=== PATIENT | male | born 1955 | race Caucasian/White ===

== ENCOUNTER 2016-07-09 15:57 | Inpatient (IN) | payer BC ==
--- NOTE | ~2016-07-09 | IDS ---
Interim Discharge Summary [facility] [address] [place]. [address] NAME: MIGUELITO SCHOFIELD : 57 STATUS : ADM IN PAT#: [id number] AGE: 60 ADM/REG DATE : 07/09/16 MR#: [id number] REPORT SERV DATE: 07/18/16 DICTATED BY: ABILIO FRANCIS DATE: 07/18/16 REPORT STATUS : Draft TRANSCRIBED BY: MODL DATE: 07/18/16 ADMISSION DATE: 07/09/2016 DISCHARGE DATE: DATE OF INTERIM SUMMARY: 07/17/2016 INTERIM DIAGNOSES: 1. Severe anasarca, present on arrival. 2. Venous thromboembolism, present on arrival. 3. Bladder cancer history, follows with Dr. Alec Joseph at [facility]. 4. Anemia . 5. Acute kidney injury, chronic kidney disease. 6. LFT elevations. 7. Smoking history. CONSULTATIONS: Renal. PRIMARY ONCOLOGIST: Dr. Alec Joseph. ADDITIONAL CONSULTATIONS: Oncology. HOSPITAL COURSE: Please see H and P for complete details. HISTORY OF PRESENT ILLNESS: Briefly, Mr. Schofield is a 60-year-old male with past medical history of bladder cancer and blood clots, was on Eliquis, additionally CKD and anemia, who presents after having same-level fall. He has been going back and forth to see his , who has been having multiple hospital stays and has been in current transition at [facility], but has been having an inpatient stay at [facility]. The patient had a fall at his car and had mild head abrasion. Initial workup, no trauma or head injury, but the patient was noted to be significantly anasarca. Had been doing very poor job caring for self, as the patient was fully occupied taking care of . The patient was placed on IV diuresis with further guidance from Renal. The patient has had decrease in approximately 49 pounds to date and has been changed over to p.o. diuresis and metolazone, currently monitoring clinically and with radiograph of chest x-ray, has had significant improvement. However, the patient has had chronic debility and will likely need rehab and is plan for [facility] after discharge. The patient subsequently was also blood clot positive. Repeat imaging showed new blood clot on left side of body, upper extremities, and IJ. Was on Eliquis at this time. The patient had been put on warfarin, but had subsequent drop in his H and H, which was also stopped. The patient was monitored and the patient required blood transfusion. The patient had minimal exposure to heparin. The patient's stool studies were negative. No signs of bleeding were clearly identified. Case was discussed with Dr. 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 Due to the patient's anasarca, this is, I believe to be, failed Eliquis due to absorption potential and therapeutic goal. The patient, once H and H had stabled, was trialed on Arixtra and currently is monitoring H and H at this time. The patient has been tolerating Arixtra well. For bladder cancer, the patient is to continue to follow Dr. Alec Joseph at discharge and likely required transition of Interim Discharge Summary [address] [address] NAME: MIGUELITO SCHOFIELD : 57 STATUS : ADM IN PAT#: [id number] AGE: 60 ADM/REG DATE : 07/09/16 MR#: [id number] REPORT SERV DATE: 07/18/16 DICTATED BY: ABILIO FRANCIS DATE: 07/18/16 REPORT STATUS : Draft TRANSCRIBED BY: MODRadhames DATE: 07/18/16 medications as current oncology treatment may be a component of anasarca. The patient's JAVID, CKD is currently closely being monitored. The patient did have congestive hepatopathy, which is also improving. The patient had repeat CT of head due to occasional slurring of words during night and morning, although this could be from electrolyte abnormalities. Due to the patient's recent fall history, CT head was repeated and was still remaining negative. Barriers to discharge, monitoring H and H, monitoring ability to tolerate p.o. medications, and optimization of diuretics. The patient also continued on fluid restriction and will likely need [facility] rehab at discharge. DDN/MODL Abilio Francis MD / [id number] CC: MD DAGO Armijo
--- NOTE | ~2016-07-09 | CN ---
Consultation Report [facility] [address] [place]. [address] NAME: MIGUELITO SCHOFIELD : 57 STATUS : ADM IN PAT#: [id number] AGE: 60 ADM/REG DATE : 07/09/16 MR#: [id number] REPORT SERV DATE: 07/10/16 DICTATED BY: ELLY ROSE DATE: 07/10/16 REPORT STATUS : Draft TRANSCRIBED BY: MODL DATE: 07/10/16 NEPHROLOGY CONSULTATION DATE OF CONSULTATION: REASON FOR CONSULTATION: Acute kidney injury with anasarca and profuse edema. HISTORY OF PRESENT ILLNESS: This is a fairly pleasant 60-year-old male patient, who is actually in the spouse of one of our active hemodialysis patients, who is currently inpatient at [facility]. He apparently was visiting her yesterday evening and had a slip and "fall" striking his head in the parking lot here at [facility]. He was evaluated in the emergency department and found to have suffered no acute injuries related to his slip and fall. However, he has been experiencing of late of worsening diffuse anasarca with edema, which has been worsening over the last two to three weeks by his report. The patient is an active treatment for bladder cancer, receiving chemotherapy, and has received multiple treatments. He does mention during the HPI and review of that his Oncology providers have discussed modifying his treatment plan based of "toxicity." The patient is aware of his baseline creatinine score. He does state, however, that his diuretics have been manipulated of late due to changes in his kidney readings, the patient also has had difficulty worsening edema upper and lower extremities and in particularly in his groin area. The patient reports that on a regular treatment day that he often experiences nausea and vomiting post treatment; however, he is able to recover and sustain and continues on active treatment with regular follow-ups of CT. On evaluation here, initial indication of CT wound of the abdomen and pelvis without contrast did show of bilateral hydronephrosis. There was an attempt made to place a Barfield catheter. However, this was unable to be completed at bedside by Urology Services. The patient chronically on Eliquis, the medication was held should there be further urologic needs on presentation for Barfield catheter placement stating that the patient would likely require a suprapubic catheter. On further imaging, renal ultrasound did not indicate evidence of hydronephrosis as indicated on CT of the abdomen and pelvis without contrast. The patient is awake and alert. He is currently on a Bumex drip. He denies current chest pain. No nausea, vomiting, or diarrhea. He reports no significant rashes. No recent antibiotic exposure and complains of diffuse edema for approximately two to three weeks worsening over the last week or so. 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 PAST SURGICAL HISTORY: Left heart catheterization in 1998 with one-vessel disease with significant collateral blood flow, not requiring percutaneous intervention, history of nephrolithiasis, bladder surgery. Consultation Report [address] [place]. [address] NAME: MIGUELITO SCHOFIELD : 57 STATUS : ADM IN PAT#: [id number] AGE: 60 ADM/REG DATE : 07/09/16 MR#: [id number] REPORT SERV DATE: 07/10/16 DICTATED BY: ELLY ROSE DATE: 07/10/16 REPORT STATUS : Draft TRANSCRIBED BY: REJI DATE: 07/10/16 REVIEW OF SYSTEMS: Review of systems is completed. Please see HPI for pertinent details. SOCIAL HISTORY: No ETOH. No illicit drugs. No tobacco. FAMILY HISTORY: Noncontributory and not reviewed in this consultation and dictation. His is, however, an active dialysis patient. ACTIVE MEDICATIONS AND ALLERGIES: On entry are as follows: Tylenol 1000 mg daily p.r.n.; Zyloprim 100 mg p.o. daily; Eliquis 5 mg p.o. b.i.d.; Lasix 20 mg daily x7 days, after 7 days previous 40; Neurontin 600 mg p.o. t.i.d.; Apresoline 25 mg p.o. daily; morphine p.o.; MS Contin 15 mg p.o. q.h.s. p.r.n.; Zofran 4 mg p.o. q.6 hours p.r.n.; Roxicodone 10 mg p.o. q.6 hours p.r.n.; Compazine 10 mg p.o. q.6 hours p.r.n.; Aldactone 25 mg p.o. daily. PHYSICAL EXAMINATION: VITAL SIGNS: Blood pressure 142/78, temperature 98.2, respiratory rate at 20, heart rate 102 beats per minute and regular, and 99% on room air. GENERAL: He is a pleasant, awake, alert, and oriented x3 male patient, in no acute distress during evaluation. HEENT: Normocephalic and atraumatic. Normal ocular movements. No scleral icterus or conjunctival pallor is appreciated. NECK: Without thyromegaly. No JVD or mass. CHEST: Shows positive S1 and S2. No rubs or gallops. LUNGS: Clear auscultation with some diminished bases. Normal expansion and effort bilaterally. No appreciable wheezes or rhonchi. GASTROINTESTINAL: Shows a rounded obese abdomen with positive bowel sounds in all four quadrants. No appreciable mass or tenderness. GENITOURINARY: Deferred. EXTREMITIES: Show significant edema to 2 to 3+ bilaterally in upper and lower extremities extending from his lower extremities upward into his groin and testicular area. NEUROLOGIC: He appears to be grossly intact. Nonfocal. SKIN: Warm, dry, and intact to visualized surfaces. No rash, lesions, or ecchymosis. PSYCHIATRIC: He is of appropriate mood and affect. LABORATORY DATA: Pertinent laboratories and imaging to this evaluation: Portable chest x- ray shows clear lungs. Renal ultrasound shows no evidence of hydronephrosis, but does show mild ascites. Renal function panel: Sodium of 142, potassium 4.4, chloride 105, CO2 of 27, BUN 40, creatinine 1.91, reflected GFR at 38 mL/minute. Calcium 7.5, magnesium 1.7, phosphorus 3.0. Albumin 1.3, iron 109, ferritin 1140, folate 6.1, vitamin B12 at 430. CBC shows a white blood cell count of 5.4, RBC 2.84, hemoglobin 7.7, hematocrit 25.0, and platelets 305. Consultation Report [facility] [id number] [place]. [address] NAME: MIGUELITO SCHOFIELD : 57 STATUS : ADM IN [facility]#: [id number] AGE: 60 ADM/REG DATE : 07/09/16 MR#: [id number] REPORT SERV DATE: 07/10/16 DICTATED BY: ELLY ROSE DATE: 07/10/16 REPORT STATUS : Draft TRANSCRIBED BY: MODRadhames DATE: 07/10/16 Urinalysis identifies 100 mg/dL of protein, negative for blood or leukocyte esterase, minimal white blood cells per high-powered field, occasional bacteria with multiple red blood cells. CT of the abdomen and pelvis without contrast identifies mild bilateral hydronephrosis, moderately severe diffuse anasarca pattern with diffusely infiltrated subcutaneous fat planes, mild hazy infiltration of the central mesentery and markedly edematous scrotum. There was also noted distended bladder, nonobstructing right nephrolithiasis, and mild diverticulosis in the sigmoid colon with no diverticulosis pattern, spondylolysis of L5 associated with grade 1 anterolisthesis L5 relative to S1 with underlying moderate degenerative disk disease, benign 8 x 12 mm bone, and right S1 vertebrae. No change from 07/30/2015 CT. Calculated FEUrea at 44.3%, calculated urinary spot protein to creatinine ratio at 4382. IMPRESSION AND PLAN: A 60-year-old male with nonsyncopal fall in the parking lot with diffuse and generalized anasarca pattern to his upper and lower extremities and his testicular area with hypoalbumin, 4+ g of protein on his spot urinary protein excretion, and active treatment for bladder cancer. The patient is currently on Bumex drip and has been removed from his home dose of Lasix as well as his Aldactone. We would also stop his Aldactone and maximize his Bumex drip and dose it with albumin as his albumin is quite low. Check his SPEP. Urology is following. He may benefit from reinsertion attempt of Barfield catheter as the Eliquis effect diminishes with the patient on heparin drip. Hematology/Oncology is to see the patient. It is not clear what active chemotherapies that he is on, suspect his acute kidney injury is likely related to active chemotherapy treatment plus or minus volume contraction with difficulty with nausea and vomiting on chemotherapy days plus or minus possible interaction with urinary retention with noted mild hydronephrosis. We will place the patient on strict I's and O's, limit his sodium intake, and follow him closely over serial laboratories. Further modification and treatment plan may be made based on clinical presentation of the patient, laboratory results, further consultation with renal attending. We appreciate the consultation. We are glad to follow. DICTATED BY: Shiva Garcia NP JR/REJI Elly Rose M.D. / [id number] CC: MD Larry Kc MD
--- NOTE | ~2016-07-09 | DS ---
Discharge Summary [facility] [address] [facility] [place]. [address] NAME: MIGUELITO SCHOFIELD : 57 STATUS : ADM IN PAT#: [id number] AGE: 60 ADM/REG DATE : 07/09/16 MR#: [id number] REPORT SERV DATE: 07/20/16 DICTATED BY: KYE DOE DATE: 07/19/16 REPORT STATUS : Draft TRANSCRIBED BY: MODL DATE: 07/19/16 ADMISSION DATE: 07/09/2016 DISCHARGE DATE: CURRENT HOSPITAL DIAGNOSES: 1. Anasarca. 2. Deep vein thrombosis. 3. Bladder cancer. 4. Acute kidney injury. 5. Chronic kidney disease. 6. Cerebellar cerebrovascular accident, acute. CONSULTATIONS AND PROCEDURES: As listed on interim summary. CURRENT PHYSICAL FINDINGS AND HISTORY OF PRESENT ILLNESS: Please see initial dictated H and P by Dr. Kent on 07/10/2016 as well as interim summary by Dr. Rangel on 07/17/2016. 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 The patient was having symptoms of incoordination, weakness, and slurred speech. The patient had CT scan x2 here, which was negative for acute CVA or bleed. He had an MRI done this evening and a critical result was called and forwarded to me at approximately 0930 hours. The patient had an acute CVA in the cerebellar vermis extending into both cerebellar hemispheres suspicious for an acute ischemic infarct. 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 On assessment of the patient, he stated that his symptoms, although present for the past three days, seemed to him, worse this morning. He had more difficulty getting to the bedside commode and more slurred speech. He was, however, specific that his symptoms have not further worsened during the day. He thought his slurred speech might actually be a little better, but because of these findings, he was sent for an MRI, which he did not get until late this evening. On currently reassessing the patient, he is alert and oriented. His speech is intelligible. He does have a tremor to the right upper extremity and some past pointing on the left upper extremity. I spoke with Dr. Arias, Neurology on-call, this evening. Because the patient is receiving Arixtra for his DVT, Neurology was concerned that without knowing the exact time of onset of his symptoms, he was certainly subject to bleeding or swelling from the CVA. On discussing this with the patient, I did inform him that he could be observed here, but if his symptoms worsened acutely, either bleeding from his blood thinner or swelling if stroke is more acute, that he would require emergent neurosurgical evaluation not available here. The patient was concerned about this and requested transfer to [place], where he could be cared for if his symptoms abruptly changed given the patient's age and the change of symptoms and his need for the continued blood thinners. This certainly seemed reasonable. It was the patient's preference to be transferred this evening. I spoke to [facility] transfer and pumphouse operator chief and they will be transferring him shortly. DISPOSITION: The patient is transferred to [place] for further evaluation, monitoring, and intervention if needed. Discharge Summary [address] [place]. [address] NAME: MIGUELITO SCHOFIELD : 57 STATUS : ADM IN [facility]#: [id number] AGE: 60 ADM/REG DATE : 07/09/16 MR#: [id number] REPORT SERV DATE: 07/20/16 DICTATED BY: KYE DOE DATE: 07/19/16 REPORT STATUS : Draft TRANSCRIBED BY: REJI DATE: 07/19/16 ELIZABETH/REJI Kye Doe M.D. / [id number] CC: MD Larry Kc MD
--- NOTE | ~2016-07-09 | CN ---
Consultation Report [facility] [address] [place]. [address] NAME: MIGUELITO SCHOFIELD : 57 STATUS : ADM IN PAT#: [id number] AGE: 60 ADM/REG DATE : 07/09/16 MR#: [id number] REPORT SERV DATE: 07/11/16 DICTATED BY: MUSHTAQ GAVIRIA DATE: 07/10/16 REPORT STATUS : Draft TRANSCRIBED BY: MODL DATE: 07/10/16 DATE OF CONSULTATION: 07/10/2016 REASON FOR CONSULTATION: Bladder cancer. HISTORY: Mr. Schofield is a 60-year-old man, who was diagnosed about one year ago with metastatic bladder cancer, under the care of Dr. Cachorro Joseph. Dr. Joseph's records are not available at this time. He reports a history of progressive swelling in the legs and arms over the last week. He has been treated with Taxol and gemcitabine for 13 cycles with cycles consisting of Taxol on day one, gemcitabine on day one and day eight with cycles repeated every three weeks. On admission here, he was found to have marked anasarca and some chronic venous stasis changes of the right lower extremity. He notes he has been evaluated by Cardiology and Vascular in last year with no evidence of any heart disease of significance or any vascular issues of concern. He denies any recent fevers or chills. He has chronic cough and more recently increasing shortness of breath. He notes that he usually does respond well to diuretics when given with increased urine output. Denies any chest pain or palpitations. PAST MEDICAL AND SURGICAL HISTORY: Metastatic bladder cancer as per HPI with no old records available. He has a history of recurring DVT in the upper extremities and lower extremities, on Eliquis. Obstructive sleep apnea, chronic renal insufficiency stage II, chronic anemia and anemia due to chemotherapy, coronary artery disease, morbid obesity. He had a left heart catheterization in 1998, history of nephrolithiasis status post transurethral resection of bladder tumors. Lhc-nfealqx-juncmnyuc diabetes mellitus (most recently, diet controlled). MEDICATIONS: As per medication sheet. REVIEW OF SYSTEMS: A 13-point review of systems as per HPI. Otherwise, unremarkable. FAMILY HISTORY: Significant for coronary artery disease and hypertension, but no cancer. SOCIAL HISTORY: He denies cigarette smoking, alcohol, or drug use. PHYSICAL EXAMINATION: VITAL SIGNS: Afebrile with normal vital signs. GENERAL: An obese man, in no acute distress. Alert, oriented x3, and very talkative and pleasant affect. HEENT: With NCAT and sclerae anicteric. Oropharynx without visible lesions. NECK: No JVD or adenopathy. Lymph node survey without palpable peripheral adenopathy. HEART: Regular rate and rhythm with a 1/6 murmur. LUNGS: With crackles anteriorly bilaterally. No rubs or rhonchi. ABDOMEN: Obese with active bowel sounds, soft and nontender. No palpable organomegaly or masses. Consultation Report [facility] [address] [facility] [place]. [address] NAME: MIGUELITO SCHOFIELD : 57 STATUS : ADM IN [facility]#: [id number] AGE: 60 ADM/REG DATE : 07/09/16 MR#: [id number] REPORT SERV DATE: 07/11/16 DICTATED BY: MUSHTAQ GAVIRIA DATE: 07/10/16 REPORT STATUS : Draft TRANSCRIBED BY: MODRadhames DATE: 07/10/16 EXTREMITIES: Without cyanosis or clubbing. Right lower extremity with chronic venous stasis changes, moderate. 2+ anasarca throughout all extremities, including the flanks. IMAGING: CT scan of the abdomen and pelvis done on 07/09/2016 reveals, impression; moderately severe anasarca pattern with diffusely infiltrated subcutaneous fat planes and mild hazy infiltration of the central mesentery and marked edematous scrotum with small volume low-density abdominal ascites. There is mild bilateral hydronephrosis and hydroureter. X-ray showed moderately distended bladder and nonobstructing right nephrolithiasis. There was some mild diverticulosis without diverticulitis or bowel obstruction. There was bilateral spondylosis of the L5 with mild grade 1 anterolisthesis of L5 relative to S1 and moderate degenerative disk disease. There was 8 x 12 mm benign bone lesion at the right S1 vertebral body without change from prior scan done in July 2015. There was cholelithiasis, but no sign of cholecystitis. CT scan of the brain on 07/09/2016 without contrast revealed unremarkable scan with no acute intracranial hemorrhage or other intracranial pathology. Urinalysis on 07/09/2016 was within normal limits, except for 100 mg of protein per dL, 139 red blood cells, and occasional bacteria. ASSESSMENT AND RECOMMENDATIONS: Mr. Schofield is a man with metastatic bladder cancer, managed by Dr. Alec Joseph on chemotherapy with Taxol and gemcitabine for 13 cycles with good response reported. CT scan done here did not show any evidence of measurable metastatic disease. He has quite marked anasarca, which could be related to the gemcitabine treatment as it does cause significant inflammatory reaction and third spacing. He does have some mild peripheral neuropathy symptoms, likely related to the diabetes and the Taxol use. I will defer further management of the patient's bladder cancer to Dr. Joseph with regard to management of metastatic disease. He may be a candidate for switching to immunotherapy with atezolizumab as an alternative second-line approach at this point. He certainly is experiencing what appears to be significant side effects of the chemotherapy which need to be managed by Dr. Joseph after discharge from the hospital. In the meantime, we will continue with diuresis as tolerated. I will plan to be available on as needed basis during the hospitalization. SAQIB/REJI Mushtaq Gaviria M.D. / [id number] CC: MD Larry Kc MD Robert M Graham, MD
--- NOTE | ~2016-07-09 | HP ---
History And Physical [address] [id number] [place]. [address] NAME: MIGUELITO SCHOFIELD : 57 STATUS : ADM IN PAT#: [id number] AGE: 60 ADM/REG DATE : 07/09/16 MR#: [id number] REPORT SERV DATE: 07/10/16 DICTATED BY: DOTTY MCRAE DATE: 07/09/16 REPORT STATUS : Draft TRANSCRIBED BY: REJI DATE: 07/09/16 DATE OF ADMISSION: 07/09/2016 CHIEF COMPLAINT: Ground-level fall, shortness of breath, and generalized body swelling. 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 The patient reports that he was in the hospital to check on his , who is currently on admission in the hospital. However, while he was trying to bring out his scooter, had a slip and fall at the parking lot. It was noted that the patient was helped to get up without any significant head injury, loss of consciousness, presyncopal, or syncopal episode. The patient had no significant generalized body pain or any chest pain prior to the fall. Most importantly, the patient reports that he has had shortness of breath which has progressively worsen in the last few months. He has also noted significant generalized body swelling of his face, abdomen and lower extremities. He reports that the swelling has become so bad that he is unable to walk. In the last one month, he has had recurrent falls at home. Of note, the patient has reported significant shortness of breath both on exertion and at rest. There was associated three-pillows orthopnea, PND. The patient reports that he sits now at the edge of the bed multiple times in the night just to catch his breath. The patient reports that he has diagnosis of sleep apnea, but stopped using his CPAP machine several years ago. Reason for not using CPAP machine per the patient was that he had no significant improvement in his sleep apnea, that was why he stopped using CPAP. He stopped using CPAP 10 years ago. The patient currently has a diagnosis of bladder cancer. Has had multiple bladder surgery and currently on chemotherapy, last dose of chemotherapy was several weeks ago. PAST MEDICAL HISTORY: 1. 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 2. Bladder cancer, on chemotherapy. 3. Obstructive sleep apnea, noncompliant with CPAP. 4. Chronic kidney disease, stage 2. 5. Chronic anemia. 6. Coronary artery disease. 7. Morbid obesity. PAST SURGICAL HISTORY: 1. Left heart catheterization in 1998 that shows one-vessel disease with significant collateral blood flow, not requiring any percutaneous intervention. 2. History of nephrolithiasis. 3. Bladder surgery. History And Physical [address] [address] NAME: MIGUELITO SCHOFIELD : 57 STATUS : ADM IN [facility]#: [id number] AGE: 60 ADM/REG DATE : 07/09/16 MR#: [id number] REPORT SERV DATE: 07/10/16 DICTATED BY: DOTTY MCRAE DATE: 07/09/16 REPORT STATUS : Draft TRANSCRIBED BY: REJI DATE: 07/09/16 ALLERGIES: ALLERGIC TO LISINOPRIL. HOME MEDICATIONS: 1. Lasix 40 mg p.o. daily. 2. Lasix 20 mg p.o. at bedtime. 3. Spironolactone. 4. Hydralazine 25 mg p.o. daily. 5. Chemotherapy one dose IV 21-day cycle. 6. Gabapentin 600 mg p.o. t.i.d. FAMILY HISTORY: Significant for coronary artery disease and hypertension. PHYSICAL EXAMINATION: VITAL SIGNS: Blood pressure 158/82, temperature 36.9, pulse rate 112 beats per minute saturating 100% on 3 L of oxygen. GENERAL: In severe acute respiratory distress. Unable to speak in full sentences. HEENT: Normocephalic, atraumatic. Extraocular muscle intact. Pupils equal, round, and reactive. NECK: Prominent neck veins. Neck is supple. CHEST: No area of tenderness. Equal expansion. Diffuse crackles in both upper, middle, and lower lung chaidez. CARDIOVASCULAR: Regular rate and rhythm. S1, S2. No murmurs, rubs, or gallops. ABDOMEN: Significant abdominal wall edema. Bowel sounds normoactive. No palpably enlarged organomegaly. EXTREMITIES: Lower extremities, extensive 4+ bilateral pitting edema extending all the way up to the pelvis. Upper extremities, also edematous with 4+. GENITOURINARY: Severe scrotal edema with retraction of the glans penis. NEUROLOGIC: Alert and oriented x3. Cranial nerves II through XII intact. Strength 5/5 in all extremities. LABORATORY DATA: Hematology: WBC 5.4, hemoglobin 7.8, hematocrit 25.2, platelet 295, INR 1.3, PT 16. BNP 484.6. Chemistry: Sodium 140, potassium 4.3, chloride 107, bicarb 24, BUN 41, creatinine 2.06, GFR 40, glucose 195, calcium 7.2, magnesium 1.6, troponin 0.05. Urinalysis: Blood moderate. Arterial blood gas: PH 7.48, pCO2 32, oxygen PaO2 76. CT of the brain, impression: Unremarkable noncontrasted CT. No acute intracranial hemorrhage or acute intracranial pathology. Chest x-ray shows bilateral pulmonary vascular congestion keeping with pulmonary edema. History And Physical [address] [address] NAME: MIGUELITO SCHOFIELD : 57 STATUS : ADM IN [facility]#: [id number] AGE: 60 ADM/REG DATE : 07/09/16 MR#: [id number] REPORT SERV DATE: 07/10/16 DICTATED BY: DOTTY MCRAE DATE: 07/09/16 REPORT STATUS : Draft TRANSCRIBED BY: REJI DATE: 07/09/[address] without contrast, impression: 1. Moderate severity diffuse anasarca pattern with diffusely infiltrated subcutaneous fat planes and mild hazy infiltration of the central mesentery and markedly edematous scrotum. 2. Small volume low-density abdominal ascites. 3. Mild bilateral hydronephrosis and hydroureter associated with a moderately distended bladder. 4. Nonobstructing right nephrolithiasis. 5. Mild diverticulosis sigmoid colon. No diverticulitis pattern. 6. Bilateral spondylolysis L5 associated with mild grade 1 anterolisthesis L5 relative to S1 with underlying moderate degenerative disk disease. 7. Benign 8 x 12 mm bone and right S1 vertebrae. No change from 07/29/2005 imaging. 8. Cholelithiasis. No acute cholecystitis pattern. SUMMARY: This is a 60-year-old male with medical history of bladder cancer currently on chemotherapy, recurrent DVT on Eliquis, who presented to the hospital after a ground-level fall, who was found to have significant shortness of breath and anasarca, also noted to have acute kidney injury with mild bilateral hydronephrosis. The patient was admitted under the Hospitalist Service. ASSESSMENT: 1. Anasarca. 2. Pulmonary edema. 3. Acute kidney injury on chronic kidney disease, stage 2. 4. Elevated troponin of 0.05. 5. Bilateral hydronephrosis with mildly distended urinary bladder. 6. Bladder cancer, on chemotherapy. 7. Normocytic anemia. 8. Severe scrotal swelling. 9. History of upper extremity deep venous thrombosis, on Eliquis. PLAN: 1. Anasarca, likely related to acute kidney injury with fluid retention. The patient may have underlying undiagnosed congestive heart failure as well because of significant elevated BNP as well as features of pulmonary edema. At this point, I will start the patient on Bumex drip with Diuril and continue to monitor the patient's urine output ( A dose of Diuril 250 mg one dose and Bumex strip 1 dose started). 2. Pulmonary edema. The patient had significant respiratory distress with chest x-ray consistent with pulmonary edema. A nitroglycerin patch was placed and also start the patient on Bumex drip. The patient will also be placed on BiPAP to improve his respiratory status. I will also obtain a 2D echocardiogram in the morning. 3. Acute kidney injury secondary to obstructive uropathy. The patient's CT scan of the abdomen shows mild bilateral hydronephrosis with possible distended bladder. Urology was consulted stat in the emergency room. Multiple attempts were made to place a Barfield catheter; however, the patient has significant edematous scrotum with retraction of the tip of the glans penis with possible panniculitis surrounded, so this attempts by Urology was unsuccessful. The patient will not be unable to undergo an emergency History And Physical [address] [address] NAME: MIGUELITO SCHOFIELD : 57 STATUS : ADM IN [facility]#: [id number] AGE: 60 ADM/REG DATE : 07/09/16 MR#: [id number] REPORT SERV DATE: 07/10/16 DICTATED BY: DOTTY MCRAE DATE: 07/09/16 REPORT STATUS : Draft TRANSCRIBED BY: MODRadhames DATE: 07/09/16 invasive procedure as he has been on Eliquis at this time. After careful deliberation with Urology, at this time, the patient able to void and produce some urine. We will continue IV diuretics. At this point, we will continue to monitor the patient's urine output. We will discontinue the patient's Eliquis and start him on heparin drip. We will abstain from invasive procedure at this time. After 24 hours of being on heparin drip, the patient can then undergo invasive procedure either by Urology or IR as appropriate at that time. 4. Normocytic anemia with hemoglobin of 7.8, no evidence of bleeding at this time. Stool guaiac was negative in the ED. Etiology likely related to chronic kidney disease versus anemia of chronic disease as well as chemotherapy effect of bone marrow suppression. We will continue to monitor the patient's hemoglobin closely. 5. Bladder cancer, on chemotherapy. We will notify the patient's Oncology at this time. 6. Elevated troponin of 0.05 likely due to NSTEMI type 2. No evidence of ischemia, no chest pain, no EKG changes significant with ST depression. At this time, we will monitor serial troponin. 7. Admission Disposition: I will prefer to admit this patient to the IMCU, however, at this time, there are no beds available, hence, the patient will be admitted to the cardiac tele monitoring unit. 8. Admission Status: Inpatient. 9. Code Status: Full code per the patient's wish. 10.Consultation: Urology. SHERRY/REJI Dotty Mcrae MD / [id number] CC: Dotty Mcrae MD
--- NOTE | ~2016-07-09 | CN ---
Consultation Report [facility] [address] [place]. [address] NAME: MIGUELITO SCHOFIELD : 57 STATUS : ADM IN PAT#: [id number] AGE: 60 ADM/REG DATE : 07/09/16 MR#: [id number] REPORT SERV DATE: 07/10/16 DICTATED BY: GUSTAVO DELGADO DATE: 07/09/16 REPORT STATUS : Draft TRANSCRIBED BY: MODL DATE: 07/09/16 INPATIENT CONSULTATION DATE OF CONSULTATION: 07/09/2016 REASON FOR CONSULTATION: Inability to place Barfield catheter. HISTORY OF PRESENT ILLNESS: Mr. Schofield is a 60-year-old white gentleman, who came to the emergency department this evening for syncope and falls, who was evaluated by the emergency department. 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 He is a patient of Dr. Remy Ríos at [facility] with metastatic bladder cancer. He is currently on chemotherapy protocol with their oncology team. The patient is currently able to void spontaneously, but the hospitalist asked me to place a Barfield catheter for fluid output monitoring due to anticipated Bumex drip. The patient denies any trouble voiding as an outpatient and has not noticed any changes in his urination over the past several days. He thinks that he empties his bladder just fine. The patient did have a CT of abdomen and pelvis that showed mild bilateral hydroureteronephrosis with a mildly dilated bladder, although the patient did admit to voiding after his CT. His creatinine was 2.0 with an unknown baseline. He is on Eliquis for frequent DVTs. As noted above, I was asked to attempt Barfield catheter placement. PAST MEDICAL HISTORY: Bladder cancer, on chemotherapy; anasarca; pulmonary edema; hypertension; and history of DVT. PAST SURGICAL HISTORY: Transurethral resection of bladder tumor by Dr. Patrick in [place], 2012 or 2013. SOCIAL HISTORY: , lives with his spouse. Does not smoke, drink alcohol, or use illicit drugs. 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 FAMILY HISTORY: No urologic problems. HOME MEDICATIONS: Tylenol, Zyloprim, Eliquis, Lasix, Neurontin, hydralazine, MS Contin, Zofran, Roxicodone, Compazine, and Aldactone. Chemotherapy as administered by Oncology. ALLERGIES: LISINOPRIL. REVIEW OF SYSTEMS: A thorough 13-point review of systems was performed by me, and if not noted be positive in the history of present illness or past medical history, negative. PHYSICAL EXAMINATION: GENERAL: An obese white gentleman with anasarca. HEENT: Normocephalic and atraumatic. Eyes are anicteric. Nares are patent. Oropharynx is Consultation Report [address] [place]. [address] NAME: MIGUELITO SCHOFIELD : 57 STATUS : ADM IN PAT#: [id number] AGE: 60 ADM/REG DATE : 07/09/16 MR#: [id number] REPORT SERV DATE: 07/10/16 DICTATED BY: GUSTAVO DELGADO. DATE: 07/09/16 REPORT STATUS : Draft TRANSCRIBED BY: REJI DATE: 07/09/16 clear. NECK: Supple. HEART: Regular rate and rhythm. ABDOMEN: Edematous, nonpalpable bladder. No CVA tenderness. GENITOURINARY: Markedly abnormal-appearing massive brawny edema/elephantine changes of the lower pelvis, mons pubis, penis, and scrotum. I would estimate that his glans is buried approximately 5 to 10 cm within this pocket integument and warm. MUSCULOSKELETAL: Moves all extremities well. NEUROLOGIC: No focal deficits. PSYCHIATRIC: Pleasant and appropriate. LABORATORY DATA: Creatinine 2.0, white blood cell count 5400, and hematocrit 25.2. IMAGING: CT scan as noted above. INTERVENTION: After informed consent was obtained, I prepped his genital area into a sterile field. I advanced the flexible cystoscope, and with great difficulty intubated the urethral meatus with a 0.035-inch guidewire. I had to advance this guidewire blindly as I could not advance the cystoscope over the wire. The patient stated to me that he felt that the wire was in his bladder, so I advanced an 18-Andorran Stoughton-tip Barfield catheter over the wire, but I could not generate any torque, and the Barfield would only curl in his buried penile fossa. The patient asked me to stop at this time. ASSESSMENT: 1. Buried penis. 2. Possible urinary retention, although the patient is voiding here in the emergency department. 3. Bilateral hydronephrosis. PLAN: I discussed this with Dr. Kent. I gave the patient the options of 1. Observe his voiding overnight. 2. Immediate trip to the OR for attempt at urethral Barfield placement under anesthesia. 3. Interventional Radiology consult for possible suprapubic catheter placement, although the patient is on Eliquis, and I doubt that they would do this. The patient's anatomy also makes this very challenging. The patient declined any further intervention to night. He believes that his urination is "fine." We will continue to follow him very closely. I believe that the hospitalist is going to hold his Eliquis and move towards heparin if anymore immediate procedures are needed. We will continue to follow closely. My colleagues at the [facility] will assume care for Mr. Schofield in the morning. BENIGNO/REJI Consultation Report [address] [address] NAME: MIGUELITO SCHOFIELD : 57 STATUS : ADM IN PAT#: [id number] AGE: 60 ADM/REG DATE : 07/09/16 MR#: [id number] REPORT SERV DATE: 07/10/16 DICTATED BY: GUSTAVO DELGADO DATE: 07/09/16 REPORT STATUS : Draft TRANSCRIBED BY: REJI DATE: 07/09/16 Gustavo Delgado M.D. / [id number] CC: Dotty Kent MD
[2016-07-09 16:26] LABS: BASOPHILS 0.4 %; BASOPHILS ABSOLUTE 0.02 10/3/uL (0.0-0.16); EOSINOPHILS ABSOLUTE 0.11 10/3/uL (0.0-0.53); HEMATOCRIT 25.2 % (40.0-51.0); HEMOGLOBIN 7.8 g/dL (13.6-17.8); IMMATURE GRANULOCYTES 0.2 %; IMMATURE GRANULOCYTES ABSOLUTE 0.01 10/3/uL (0.0-0.11); LYMPHOCYTES 9.9 %; LYMPHOCYTES ABSOLUTE 0.54 10/3/uL (0.67-4.30); MEAN CORPUSCULAR HEMOGLOB 27.2 pg (26.0-34.0); MEAN CORPUSCULAR VOLUME 87.8 fL (80-100); MEAN PLATELET VOLUME 10.1 fL (9.2-13.0); MONOCYTES 1.5 %; MONOCYTES ABSOLUTE 0.08 10/3/uL (0.21-1.20); NEUTROPHILS ABSOLUTE 4.68 10/3/uL (2.02-8.40); PLATELET COUNT 295 10/3/uL (150-400); RBC DISTRIBUTION WIDTH 20.6 % (12.0-16.0); RED CELL COUNT 2.87 10/6/uL (4.7-6.1); WHITE BLOOD CELLS 5.4 10/3/uL (4.5-10.5)
[2016-07-09 16:28] LABS: MANUAL DIFF NO %
[2016-07-09 16:38] LABS: INTERNATIONAL NORMAL RATI 1.3 UNITS (-); PARTIAL THROMBO TIME 36.8 SEC (22.5-37.2)
[2016-07-09 16:56] LABS: BUN (BLOOD UREA NITROGEN) 41 MG/DL (6-23); CALCIUM, SERUM 7.2 MG/DL (8.5-10.4); CHLORIDE, SERUM 107 MMOL/L (96-112); CO2 (CARBON DIOXIDE) 24 MMOL/L (24-34); CREATININE 2.06 MG/DL (0.70-1.30); GFR AFRICAN AMERICAN 40 ML/MIN (>=60); GFR NON AFRICAN AMERICAN 34 ML/MIN (>=60); GLUCOSE, SERUM 195 MG/DL (60-99); POTASSIUM, SERUM 4.3 MMOL/L (3.5-5.3); SODIUM, SERUM 140 MMOL/L (135-148)
[2016-07-09 17:05] LABS: CHEST PAIN PROFILE TAT 0 Hrs 45 Mins; TROPONIN I 0.05 NG/ML (<0.05)
[2016-07-09] MEDS ORDERED: L40 PO (17:53)
[2016-07-09] MEDS ORDERED: L20 PO (17:54)
[2016-07-09] MEDS ORDERED: APRES25 PO (17:55)
[2016-07-09] MEDS ORDERED: SPIRO25 PO (17:55)
[2016-07-09] MEDS ORDERED: CHEMOTHERAPY IV (17:56)
[2016-07-09] MEDS ORDERED: ACET500CAP PO (17:56)
[2016-07-09] MEDS ORDERED: NEUR600 PO (17:56)
[2016-07-09] MEDS ORDERED: ZOFRAN4 PO (17:57)
[2016-07-09] MEDS ORDERED: ELIQUIS 5 MG TAB5 MG PO (17:57)
[2016-07-09] MEDS ORDERED: Z100 PO (17:57)
[2016-07-09] MEDS ORDERED: COMP10B PO (17:57)
[2016-07-09] MEDS ORDERED: MSCONT15 PO (17:58)
[2016-07-09] MEDS ORDERED: OXYCOD PO (17:58)
[2016-07-09 19:35] LABS: BE (BASE EXCESS) -0.4 MEQ/L (0 +/- 2.5); CARBOXYHEMOGLOBIN 1.5 % (0-3); HCO3 (ACTUAL BICARBONATE) 22.8 MEQ/L (23-27); HEMOBLOGIN CONTENT 8.8 G/DL (14-18); INSTRUMENT SERIAL # 8087; METHEMOGLOBIN 0.3 % (0-3); O2 CONTENT 11.7 VOL% (18-24); PCO2 (CO2 TENSION) 32 MMHG (35-45); PO2 (O2 TENSION) 76 MMHG (79-93); SAMPLE Arterial; pH 7.48 (7.37-7.43)
[2016-07-09 19:59] LABS: WBC (NOT ORDERED) (RFLEX) 0 (0-5)
[2016-07-09 20:09] LABS: ASCORBIC ACID (UR NOT ORDER) NEG (NEG); BILIRUBIN, URINE NEGATIVE (NEG); KETONE, URINE NEGATIVE (NEG); LEUKOCYTE ESTERASE(NOT OR NEG (NEG)
[2016-07-09 20:13] LABS: PROCALCITONIN 1.38 ng/mL (<0.5)
[2016-07-10 00:01] LABS: RETICULOCYTE COUNT 0.6 % (0.5-2.5)
[2016-07-10 00:24] LABS: FREE T4 1.22 NG/DL (0.76-1.46); ULTRASENSITIVE TSH 3.36 MCIU/ML (0.358-3.740)
[2016-07-10 00:26] LABS: TROPONIN I 0.05 NG/ML (<0.05)
[2016-07-10 03:50] LABS: BASOPHILS 0.6 %; BASOPHILS ABSOLUTE 0.03 10/3/uL (0.0-0.16); EOSINOPHILS 2.8 %; EOSINOPHILS ABSOLUTE 0.15 10/3/uL (0.0-0.53); HEMOGLOBIN 7.7 g/dL (13.6-17.8); IMMATURE GRANULOCYTES 0.2 %; IMMATURE GRANULOCYTES ABSOLUTE 0.01 10/3/uL (0.0-0.11); LYMPHOCYTES 14.1 %; LYMPHOCYTES ABSOLUTE 0.76 10/3/uL (0.67-4.30); MANUAL DIFF NO %; MEAN CORPUS HGB CONC 30.8 g/dL (32.0-36.0); MEAN CORPUSCULAR HEMOGLOB 27.1 pg (26.0-34.0); MEAN PLATELET VOLUME 10.5 fL (9.2-13.0); MONOCYTES 2.4 %; MONOCYTES ABSOLUTE 0.13 10/3/uL (0.21-1.20); NEUTROPHILS 79.9 %; NEUTROPHILS ABSOLUTE 4.32 10/3/uL (2.02-8.40); PLATELET COUNT 305 10/3/uL (150-400); RBC DISTRIBUTION WIDTH 20.6 % (12.0-16.0); RED CELL COUNT 2.84 10/6/uL (4.7-6.1); WHITE BLOOD CELLS 5.4 10/3/uL (4.5-10.5)
[2016-07-10 04:00] LABS: ALBUMIN 1.3 G/DL (3.5-5.0); BUN (BLOOD UREA NITROGEN) 40 MG/DL (6-23); CALCIUM, SERUM 7.5 MG/DL (8.5-10.4); CHLORIDE, SERUM 105 MMOL/L (96-112); CO2 (CARBON DIOXIDE) 27 MMOL/L (24-34); CREATININE 1.91 MG/DL (0.70-1.30); FERRITIN 1140 NG/ML (26-388); GFR AFRICAN AMERICAN 43 ML/MIN (>=60); GFR NON AFRICAN AMERICAN 38 ML/MIN (>=60); GLUCOSE, SERUM 136 MG/DL (60-99); IRON, SERUM 109 MCG/DL (35-150); POTASSIUM, SERUM 4.4 MMOL/L (3.5-5.3); SODIUM, SERUM 142 MMOL/L (135-148)
[2016-07-10 04:33] LABS: CREATININE, URINE 52.6 MG/DL
[2016-07-10 14:01] LABS: FOLATE 6.1 NG/ML (>5.2)
[2016-07-10 18:45] LABS: BUN (BLOOD UREA NITROGEN) 39 MG/DL (6-23); CHLORIDE, SERUM 102 MMOL/L (96-112); CO2 (CARBON DIOXIDE) 27 MMOL/L (24-34); COMPLEMENT C3 101 MG/DL (75-161); COMPLEMENT C4 24.6 MG/DL (16-47); CREATININE 1.91 MG/DL (0.70-1.30); GFR AFRICAN AMERICAN 43 ML/MIN (>=60); GFR NON AFRICAN AMERICAN 38 ML/MIN (>=60); GLUCOSE, SERUM 117 MG/DL (60-99); POTASSIUM, SERUM 3.9 MMOL/L (3.5-5.3); SODIUM, SERUM 138 MMOL/L (135-148)
[2016-07-10 18:52] LABS: T PROTEIN (ELECT)(NOT OR 4.9 G/DL (6.0-8.5)
[2016-07-11 05:08] LABS: BASOPHILS 0.7 %; BASOPHILS ABSOLUTE 0.03 10/3/uL (0.0-0.16); EOSINOPHILS 5.9 %; EOSINOPHILS ABSOLUTE 0.24 10/3/uL (0.0-0.53); IMMATURE GRANULOCYTES 0.2 %; IMMATURE GRANULOCYTES ABSOLUTE 0.01 10/3/uL (0.0-0.11); LYMPHOCYTES 19.6 %; LYMPHOCYTES ABSOLUTE 0.79 10/3/uL (0.67-4.30); MEAN CORPUS HGB CONC 30.7 g/dL (32.0-36.0); MEAN CORPUSCULAR HEMOGLOB 26.7 pg (26.0-34.0); MEAN PLATELET VOLUME 10.1 fL (9.2-13.0); MONOCYTES 2.2 %; MONOCYTES ABSOLUTE 0.09 10/3/uL (0.21-1.20); NEUTROPHILS 71.4 %; NEUTROPHILS ABSOLUTE 2.88 10/3/uL (2.02-8.40); PLATELET COUNT 274 10/3/uL (150-400); RBC DISTRIBUTION WIDTH 20.7 % (12.0-16.0); RED CELL COUNT 2.47 10/6/uL (4.7-6.1)
[2016-07-11 05:11] LABS: HEMATOCRIT 21.5 % (40.0-51.0); HEMOGLOBIN 6.6 g/dL (13.6-17.8); MANUAL DIFF NO %
[2016-07-11 05:21] LABS: A/G RATIO 0.6 (0.7-1.9); ALKALINE PHOSPHATASE 154 U/L (45-117); BUN (BLOOD UREA NITROGEN) 40 MG/DL (6-23); CHLORIDE, SERUM 101 MMOL/L (96-112); CO2 (CARBON DIOXIDE) 27 MMOL/L (24-34); CREATININE 1.88 MG/DL (0.70-1.30); DIRECT BILIRUBIN 0.1 MG/DL (0.0-0.4); GFR AFRICAN AMERICAN 44 ML/MIN (>=60); GFR NON AFRICAN AMERICAN 38 ML/MIN (>=60); GLUCOSE, SERUM 133 MG/DL (60-99); INDIRECT BILIRUBIN(NOT ORDER) 0.2 MG/DL (0.1-0.9); POTASSIUM, SERUM 3.8 MMOL/L (3.5-5.3); SGOT(AST) 43 U/L (5-40); SGPT(ALT) 38 U/L (5-65); SODIUM, SERUM 137 MMOL/L (135-148); TOTAL BILIRUBIN 0.3 MG/DL (0-1.2); TOTAL PROTEIN 4.9 G/DL (6.0-8.5)
[2016-07-11 05:30] LABS: ALBUMIN 1.9 G/DL (3.5-5.0)
[2016-07-11 08:51] LABS: HEPATITIS B SURFACE ANTIGEN NON-REACTIVE (NON-REACT)
[2016-07-11 09:04] LABS: HEPATITIS C ANTIBODY NON-REACTIVE (NON-REACT)
[2016-07-11 11:18] LABS: RETICULOCYTE COUNT 0.2 % (0.5-2.9); RETICULOCYTE COUNT ABSOLUTE 5.6 10/3/uL (20.2-119.8)
[2016-07-11 11:34] LABS: A/G 0.48 RATIO (0.9-2.10); ABNORMAL PEAK 1 0.26 G/DL; ABNORMAL PEAK 1 % 5.4 % (0); ALB RELATIVE % 32.5 % (60.0-89.0); ALBUMIN (ELECTRO) 1.59 GM/DL (3.2-5.5); ALPHA 1 RELAT % (NOT ORD) 6.2 % (1.0-4.0); ALPHA 2 (ELECTRO) 0.89 GM/DL (0.5-1.10); ALPHA 2 RELAT % 18.2 % (4.5-26.0); BETA GLOBULIN (SPE) 0.69 GM/DL (0.60-1.30); BETA RELATIVE % 14.1 % (9.0-22.0); GAMMA GLOBULIN (SPE) 1.42 G/DL (0.70-1.60)
[2016-07-11 17:51] LABS: HEMATOCRIT 26.9 % (40.0-51.0); HEMOGLOBIN 8.7 g/dL (13.6-17.8)
[2016-07-12 04:20] LABS: BASOPHILS 1.1 %; BASOPHILS ABSOLUTE 0.03 10/3/uL (0.0-0.16); EOSINOPHILS 5.1 %; EOSINOPHILS ABSOLUTE 0.14 10/3/uL (0.0-0.53); HEMATOCRIT 27.3 % (40.0-51.0); HEMOGLOBIN 8.8 g/dL (13.6-17.8); IMMATURE GRANULOCYTES 1.1 %; IMMATURE GRANULOCYTES ABSOLUTE 0.03 10/3/uL (0.0-0.11); LYMPHOCYTES 25.6 %; MEAN CORPUS HGB CONC 32.2 g/dL (32.0-36.0); MEAN CORPUSCULAR HEMOGLOB 27.7 pg (26.0-34.0); MEAN CORPUSCULAR VOLUME 85.8 fL (80-100); MONOCYTES 12.8 %; MONOCYTES ABSOLUTE 0.35 10/3/uL (0.21-1.20); NEUTROPHILS 54.3 %; NEUTROPHILS ABSOLUTE 1.48 10/3/uL (2.02-8.40); PLATELET COUNT 248 10/3/uL (150-400); RBC DISTRIBUTION WIDTH 19.2 % (12.0-16.0); WHITE BLOOD CELLS 2.7 10/3/uL (4.5-10.5)
[2016-07-12 04:25] LABS: MANUAL DIFF NO %; RED CELL COUNT 3.18 10/6/uL (4.7-6.1)
[2016-07-12 04:27] LABS: INTERNATIONAL NORMAL RATI 1.2 UNITS (-)
[2016-07-12 04:30] LABS: A/G RATIO 0.7 (0.7-1.9); ALKALINE PHOSPHATASE 163 U/L (45-117); BUN (BLOOD UREA NITROGEN) 40 MG/DL (6-23); CALCIUM, SERUM 8.2 MG/DL (8.5-10.4); CHLORIDE, SERUM 96 MMOL/L (96-112); CO2 (CARBON DIOXIDE) 32 MMOL/L (24-34); CREATININE 2.07 MG/DL (0.70-1.30); GFR AFRICAN AMERICAN 39 ML/MIN (>=60); GFR NON AFRICAN AMERICAN 34 ML/MIN (>=60); GLUCOSE, SERUM 160 MG/DL (60-99); SGOT(AST) 56 U/L (5-40); SGPT(ALT) 39 U/L (5-65); SODIUM, SERUM 137 MMOL/L (135-148); TOTAL BILIRUBIN 0.6 MG/DL (0-1.2)
[2016-07-12 11:26] LABS: ANA PATTERN SPECKLED
[2016-07-12 22:26] LABS: ANCA <1:20 (()); MYELOPEROXIDASE ANTIBODY <0.2 AI (<1.0); PROTEINASE 3 ANTIBODY <0.2 AI (<1.0)
[2016-07-13 05:54] LABS: HEMATOCRIT 29.3 % (40.0-51.0); HEMOGLOBIN 9.5 g/dL (13.6-17.8); MEAN CORPUS HGB CONC 32.4 g/dL (32.0-36.0); MEAN CORPUSCULAR HEMOGLOB 27.4 pg (26.0-34.0); MEAN CORPUSCULAR VOLUME 84.4 fL (80-100); MEAN PLATELET VOLUME 9.8 fL (9.2-13.0); NUCLEATED RED BLOOD CELLS 5.3 /100WBC (0-0); PLATELET COUNT 196 10/3/uL (150-400); RBC DISTRIBUTION WIDTH 19.5 % (12.0-16.0); RED CELL COUNT 3.47 10/6/uL (4.7-6.1)
[2016-07-13 05:58] LABS: A/G RATIO 0.5 (0.7-1.9); ALBUMIN 1.8 G/DL (3.5-5.0); BUN (BLOOD UREA NITROGEN) 44 MG/DL (6-23); CALCIUM, SERUM 8.3 MG/DL (8.5-10.4); CHLORIDE, SERUM 95 MMOL/L (96-112); CO2 (CARBON DIOXIDE) 32 MMOL/L (24-34); CREATININE 2.29 MG/DL (0.70-1.30); GFR AFRICAN AMERICAN 35 ML/MIN (>=60); GFR NON AFRICAN AMERICAN 30 ML/MIN (>=60); GLOBULIN 3.4 G/DL (2.5-4.1); GLUCOSE, SERUM 168 MG/DL (60-99); PHOSPHORUS, SERUM 3.5 MG/DL (2.5-4.5); POTASSIUM, SERUM 3.9 MMOL/L (3.5-5.3); SGOT(AST) 225 U/L (5-40); SGPT(ALT) 108 U/L (5-65); SODIUM, SERUM 135 MMOL/L (135-148); TOTAL BILIRUBIN 0.5 MG/DL (0-1.2); TOTAL PROTEIN 5.2 G/DL (6.0-8.5)
[2016-07-13 05:59] LABS: ALKALINE PHOSPHATASE 185 U/L (45-117)
[2016-07-13 06:04] LABS: WHITE BLOOD CELLS 2.4 10/3/uL (4.5-10.5)
[2016-07-13 06:06] LABS: MANUAL DIFF YES %
[2016-07-13 07:20] LABS: ANISOCYTOSIS 1+ (5-10/OIF) (0-5/OIF); BAND NEUTROPHILS 4 %; EOSINOPHILS 2 %; EOSINOPHILS ABSOLUTE (CALC) 0.05 10/3/uL (0.0-0.53); IMMATURE GRANS ABSOLUTE (CALC) 0.02 10/3/uL (0.0-0.11); LYMPHOCYTES 29 %; METAMYELOCYTES 1 %; MONOCYTES 23 %; MONOCYTES ABSOLUTE (CALC) 0.55 10/3/uL (0.21-1.20); NEUTROPHILS ABSOLUTE (CALC) 1.08 10/3/uL (2.02-8.40); PLATELET ESTIMATE ADQ (ADEQUATE); POLYCHROMASIA 1+ (2-5/OIF) (0-1/OIF); SEGMENTED NEUTROPHIL (0) 41 %; TOTAL NUCLEATED CELLS 100
[2016-07-14 04:50] LABS: HEMATOCRIT 30.1 % (40.0-51.0); HEMOGLOBIN 9.5 g/dL (13.6-17.8); MEAN CORPUS HGB CONC 31.6 g/dL (32.0-36.0); MEAN CORPUSCULAR HEMOGLOB 27.3 pg (26.0-34.0); MEAN CORPUSCULAR VOLUME 86.5 fL (80-100); MEAN PLATELET VOLUME 10.6 fL (9.2-13.0); PLATELET COUNT 170 10/3/uL (150-400); RBC DISTRIBUTION WIDTH 19.5 % (12.0-16.0); RED CELL COUNT 3.48 10/6/uL (4.7-6.1)
[2016-07-14 04:56] LABS: MANUAL DIFF YES %; WHITE BLOOD CELLS 3.8 10/3/uL (4.5-10.5)
[2016-07-14 05:09] LABS: A/G RATIO 0.5 (0.7-1.9); ALBUMIN 1.7 G/DL (3.5-5.0); ALKALINE PHOSPHATASE 185 U/L (45-117); CALCIUM, SERUM 8.1 MG/DL (8.5-10.4); CHLORIDE, SERUM 93 MMOL/L (96-112); CO2 (CARBON DIOXIDE) 31 MMOL/L (24-34); CREATININE 2.62 MG/DL (0.70-1.30); GFR AFRICAN AMERICAN 30 ML/MIN (>=60); GFR NON AFRICAN AMERICAN 26 ML/MIN (>=60); GLOBULIN 3.2 G/DL (2.5-4.1); PHOSPHORUS, SERUM 3.4 MG/DL (2.5-4.5); POTASSIUM, SERUM 4.1 MMOL/L (3.5-5.3); SGOT(AST) 213 U/L (5-40); SGPT(ALT) 116 U/L (5-65); SODIUM, SERUM 134 MMOL/L (135-148); TOTAL BILIRUBIN 0.4 MG/DL (0-1.2); TOTAL PROTEIN 4.9 G/DL (6.0-8.5)
[2016-07-14 05:24] LABS: ANISOCYTOSIS 1+ (5-10/OIF) (0-5/OIF); BAND NEUTROPHILS 3 %; IMMATURE GRANS ABSOLUTE (CALC) 0.11 10/3/uL (0.0-0.11); LYMPHOCYTES 19 %; LYMPHOCYTES ABSOLUTE (CALC) 0.72 10/3/uL (0.67-4.30); METAMYELOCYTES 3 %; MONOCYTES 22 %; MONOCYTES ABSOLUTE (CALC) 0.84 10/3/uL (0.21-1.20); NEUTROPHILS ABSOLUTE (CALC) 2.13 10/3/uL (2.02-8.40); NUCLEATED RED BLOOD CELLS 4 /100WBC (0); PLATELET ESTIMATE ADQ (ADEQUATE); SEGMENTED NEUTROPHIL (0) 53 %; TOTAL NUCLEATED CELLS 100
[2016-07-14 05:25] LABS: POLYCHROMASIA 1+ (2-5/OIF) (0-1/OIF); SCHISTOCYTES OCC (0-2/OIF); TEARDROP SHAPED RBCS OCC (0-2/OIF)
[2016-07-14 05:27] LABS: BUN (BLOOD UREA NITROGEN) 50 MG/DL (6-23); GLUCOSE, SERUM 210 MG/DL (60-99)
[2016-07-15 04:55] LABS: HEMATOCRIT 28.4 % (40.0-51.0); HEMOGLOBIN 8.9 g/dL (13.6-17.8); MEAN CORPUS HGB CONC 31.3 g/dL (32.0-36.0); MEAN CORPUSCULAR HEMOGLOB 27.4 pg (26.0-34.0); MEAN CORPUSCULAR VOLUME 87.4 fL (80-100); MEAN PLATELET VOLUME 10.2 fL (9.2-13.0); NUCLEATED RED BLOOD CELLS 2.6 /100WBC (0-0); PLATELET COUNT 178 10/3/uL (150-400); RBC DISTRIBUTION WIDTH 19.6 % (12.0-16.0); RED CELL COUNT 3.25 10/6/uL (4.7-6.1)
[2016-07-15 04:56] LABS: MANUAL DIFF YES %; WHITE BLOOD CELLS 5.6 10/3/uL (4.5-10.5)
[2016-07-15 05:40] LABS: CHLORIDE, SERUM 96 MMOL/L (96-112); CO2 (CARBON DIOXIDE) 33 MMOL/L (24-34); CREATININE 2.53 MG/DL (0.70-1.30); GFR AFRICAN AMERICAN 31 ML/MIN (>=60); GFR NON AFRICAN AMERICAN 27 ML/MIN (>=60); PHOSPHORUS, SERUM 3.1 MG/DL (2.5-4.5); POTASSIUM, SERUM 4.1 MMOL/L (3.5-5.3); SODIUM, SERUM 138 MMOL/L (135-148)
[2016-07-15 05:42] LABS: ALBUMIN 2.2 G/DL (3.5-5.0); BUN (BLOOD UREA NITROGEN) 56 MG/DL (6-23); GLUCOSE, SERUM 148 MG/DL (60-99)
[2016-07-15 06:33] LABS: ANISOCYTOSIS 1+ (5-10/OIF) (0-5/OIF); BAND NEUTROPHILS 5 %; EOSINOPHILS 4 %; EOSINOPHILS ABSOLUTE (CALC) 0.22 10/3/uL (0.0-0.53); IMMATURE GRANS ABSOLUTE (CALC) 0.17 10/3/uL (0.0-0.11); LYMPHOCYTES 16 %; METAMYELOCYTES 3 %; MONOCYTES 24 %; MONOCYTES ABSOLUTE (CALC) 1.34 10/3/uL (0.21-1.20); NEUTROPHILS ABSOLUTE (CALC) 2.97 10/3/uL (2.02-8.40); PLATELET ESTIMATE ADQ (ADEQUATE); SEGMENTED NEUTROPHIL (0) 48 %; TOTAL NUCLEATED CELLS 100
[2016-07-15 06:35] LABS: BASOPHILIC STIPPLING 1+ (2-5/OIF) (0-1/OIF); MACROCYTES 1+ (5-10/OIF) (0-5/OIF); POLYCHROMASIA 1+ (2-5/OIF) (0-1/OIF); TEARDROP SHAPED RBCS OCC (0-2/OIF)
[2016-07-15 06:36] LABS: MICROCYTES 1+ (5-10/OIF) (0-5/OIF); TOXIC GRANULATION 1+; VACUOLATED NEUTROPHILES OCC
[2016-07-15 16:31] LABS: HEMOGLOBIN 9.4 g/dL (13.6-17.8)
[2016-07-15 19:54] LABS: T.V. 24HR UR 3900 ML/24HR (600-1600)
[2016-07-15 19:58] LABS: TOTAL PROTEIN URINE 161.6 MG/DL
[2016-07-16 04:20] LABS: HEMATOCRIT 28.3 % (40.0-51.0); HEMOGLOBIN 9.1 g/dL (13.6-17.8); MEAN CORPUS HGB CONC 32.2 g/dL (32.0-36.0); MEAN CORPUSCULAR HEMOGLOB 28.2 pg (26.0-34.0); MEAN CORPUSCULAR VOLUME 87.6 fL (80-100); MEAN PLATELET VOLUME 10.6 fL (9.2-13.0); NUCLEATED RED BLOOD CELLS 1.5 /100WBC (0-0); PLATELET COUNT 158 10/3/uL (150-400); RBC DISTRIBUTION WIDTH 19.7 % (12.0-16.0); RED CELL COUNT 3.23 10/6/uL (4.7-6.1); WHITE BLOOD CELLS 5.2 10/3/uL (4.5-10.5)
[2016-07-16 04:21] LABS: MANUAL DIFF YES %
[2016-07-16 04:35] LABS: ALBUMIN 2.1 G/DL (3.5-5.0); BUN (BLOOD UREA NITROGEN) 57 MG/DL (6-23); CALCIUM, SERUM 7.8 MG/DL (8.5-10.4); CHLORIDE, SERUM 94 MMOL/L (96-112); CO2 (CARBON DIOXIDE) 34 MMOL/L (24-34); CREATININE 2.45 MG/DL (0.70-1.30); GFR AFRICAN AMERICAN 32 ML/MIN (>=60); GFR NON AFRICAN AMERICAN 28 ML/MIN (>=60); GLUCOSE, SERUM 208 MG/DL (60-99); PHOSPHORUS, SERUM 2.9 MG/DL (2.5-4.5); POTASSIUM, SERUM 4.3 MMOL/L (3.5-5.3); SODIUM, SERUM 137 MMOL/L (135-148)
[2016-07-16 06:14] LABS: ANISOCYTOSIS 1+ (5-10/OIF) (0-5/OIF); BAND NEUTROPHILS 4 %; BASOPHILS 1 %; BASOPHILS ABSOLUTE (CALC) 0.05 10/3/uL (0.0-0.16); EOSINOPHILS 3 %; EOSINOPHILS ABSOLUTE (CALC) 0.16 10/3/uL (0.0-0.53); LYMPHOCYTES 16 %; LYMPHOCYTES ABSOLUTE (CALC) 0.83 10/3/uL (0.67-4.30); METAMYELOCYTES 2 %; MONOCYTES 22 %; MONOCYTES ABSOLUTE (CALC) 1.14 10/3/uL (0.21-1.20); NEUTROPHILS ABSOLUTE (CALC) 2.91 10/3/uL (2.02-8.40); PLATELET ESTIMATE ADQ (ADEQUATE); SEGMENTED NEUTROPHIL (0) 52 %; TOTAL NUCLEATED CELLS 100
[2016-07-16 06:15] LABS: BASOPHILIC STIPPLING 1+ (2-5/OIF) (0-1/OIF); MACROCYTES 1+ (5-10/OIF) (0-5/OIF); MICROCYTES 1+ (5-10/OIF) (0-5/OIF); POLYCHROMASIA 1+ (2-5/OIF) (0-1/OIF)
[2016-07-16 06:16] LABS: TARGET CELLS OCC (1-2/OIF) (0-1/OIF); TEARDROP SHAPED RBCS OCC (0-2/OIF); TOXIC GRANULATION 1+
[2016-07-16 06:17] LABS: VACUOLATED NEUTROPHILES OCC
[2016-07-17 06:29] LABS: HEMOGLOBIN 9.2 g/dL (13.6-17.8); MEAN CORPUS HGB CONC 31.7 g/dL (32.0-36.0); MEAN CORPUSCULAR HEMOGLOB 27.8 pg (26.0-34.0); MEAN CORPUSCULAR VOLUME 87.6 fL (80-100); MEAN PLATELET VOLUME 10.6 fL (9.2-13.0); PLATELET COUNT 144 10/3/uL (150-400); RBC DISTRIBUTION WIDTH 21.1 % (12.0-16.0); RED CELL COUNT 3.31 10/6/uL (4.7-6.1); WHITE BLOOD CELLS 6.7 10/3/uL (4.5-10.5)
[2016-07-17 06:38] LABS: MANUAL DIFF YES %
[2016-07-17 06:44] LABS: ALBUMIN 2.1 G/DL (3.5-5.0); ALKALINE PHOSPHATASE 178 U/L (45-117); CHLORIDE, SERUM 89 MMOL/L (96-112); CO2 (CARBON DIOXIDE) 34 MMOL/L (24-34); CREATININE 2.63 MG/DL (0.70-1.30); DIRECT BILIRUBIN 0.2 MG/DL (0.0-0.4); GFR AFRICAN AMERICAN 30 ML/MIN (>=60); GFR NON AFRICAN AMERICAN 25 ML/MIN (>=60); GLUCOSE, SERUM 174 MG/DL (60-99); INDIRECT BILIRUBIN(NOT ORDER) 0.7 MG/DL (0.1-0.9); PHOSPHORUS, SERUM 3.4 MG/DL (2.5-4.5); POTASSIUM, SERUM 4.1 MMOL/L (3.5-5.3); SGOT(AST) 78 U/L (5-40); SGPT(ALT) 60 U/L (5-65); SODIUM, SERUM 133 MMOL/L (135-148); TOTAL PROTEIN 5.3 G/DL (6.0-8.5)
[2016-07-17 06:46] LABS: BUN (BLOOD UREA NITROGEN) 63 MG/DL (6-23); TOTAL BILIRUBIN 0.9 MG/DL (0-1.2)
[2016-07-17 07:45] LABS: ANISOCYTOSIS 1+ (5-10/OIF) (0-5/OIF); BAND NEUTROPHILS 7 %; EOSINOPHILS 2 %; EOSINOPHILS ABSOLUTE (CALC) 0.13 10/3/uL (0.0-0.53); IMMATURE GRANS ABSOLUTE (CALC) 0.34 10/3/uL (0.0-0.11); LYMPHOCYTES 21 %; LYMPHOCYTES ABSOLUTE (CALC) 1.41 10/3/uL (0.67-4.30); METAMYELOCYTES 4 %; MONOCYTES 1 %; MONOCYTES ABSOLUTE (CALC) 0.07 10/3/uL (0.21-1.20); MYELOCYTES 1 %; NEUTROPHILS ABSOLUTE (CALC) 4.76 10/3/uL (2.02-8.40); PLATELET ESTIMATE SLT DEC (ADEQUATE); POLYCHROMASIA 1+ (2-5/OIF) (0-1/OIF); SEGMENTED NEUTROPHIL (0) 64 %; TOTAL NUCLEATED CELLS 100
[2016-07-18 06:09] LABS: BASOPHILS 0.4 %; BASOPHILS ABSOLUTE 0.03 10/3/uL (0.0-0.16); EOSINOPHILS 1.1 %; EOSINOPHILS ABSOLUTE 0.08 10/3/uL (0.0-0.53); HEMOGLOBIN 10.2 g/dL (13.6-17.8); IMMATURE GRANULOCYTES 0.9 %; IMMATURE GRANULOCYTES ABSOLUTE 0.07 10/3/uL (0.0-0.11); LYMPHOCYTES 17.9 %; LYMPHOCYTES ABSOLUTE 1.36 10/3/uL (0.67-4.30); MEAN CORPUS HGB CONC 31.4 g/dL (32.0-36.0); MEAN CORPUSCULAR HEMOGLOB 27.8 pg (26.0-34.0); MEAN CORPUSCULAR VOLUME 88.6 fL (80-100); MEAN PLATELET VOLUME 11.1 fL (9.2-13.0); MONOCYTES 19.9 %; MONOCYTES ABSOLUTE 1.51 10/3/uL (0.21-1.20); NEUTROPHILS 59.8 %; NEUTROPHILS ABSOLUTE 4.54 10/3/uL (2.02-8.40); PLATELET COUNT 150 10/3/uL (150-400); RBC DISTRIBUTION WIDTH 21.5 % (12.0-16.0); RED CELL COUNT 3.67 10/6/uL (4.7-6.1); WHITE BLOOD CELLS 7.6 10/3/uL (4.5-10.5)
[2016-07-18 06:11] LABS: HEMATOCRIT 32.5 % (40.0-51.0); MANUAL DIFF NO %
[2016-07-18 06:26] LABS: A/G RATIO 0.7 (0.7-1.9); ALBUMIN 2.2 G/DL (3.5-5.0); CALCIUM, SERUM 8.4 MG/DL (8.5-10.4); CHLORIDE, SERUM 86 MMOL/L (96-112); CO2 (CARBON DIOXIDE) 34 MMOL/L (24-34); CREATININE 2.81 MG/DL (0.70-1.30); GFR AFRICAN AMERICAN 27 ML/MIN (>=60); GFR NON AFRICAN AMERICAN 24 ML/MIN (>=60); GLOBULIN 3.2 G/DL (2.5-4.1); POTASSIUM, SERUM 4.3 MMOL/L (3.5-5.3); SGOT(AST) 67 U/L (5-40); SGPT(ALT) 52 U/L (5-65); SODIUM, SERUM 131 MMOL/L (135-148); TOTAL BILIRUBIN 0.8 MG/DL (0-1.2); TOTAL PROTEIN 5.4 G/DL (6.0-8.5)
[2016-07-18 06:27] LABS: ALKALINE PHOSPHATASE 138 U/L (45-117); BUN (BLOOD UREA NITROGEN) 68 MG/DL (6-23); GLUCOSE, SERUM 124 MG/DL (60-99)
[2016-07-19 05:59] LABS: HEMATOCRIT 29.9 % (40.0-51.0); HEMOGLOBIN 9.5 g/dL (13.6-17.8); MEAN CORPUS HGB CONC 31.8 g/dL (32.0-36.0); MEAN CORPUSCULAR HEMOGLOB 28.1 pg (26.0-34.0); MEAN CORPUSCULAR VOLUME 88.5 fL (80-100); MEAN PLATELET VOLUME 11.3 fL (9.2-13.0); PLATELET COUNT 154 10/3/uL (150-400); RBC DISTRIBUTION WIDTH 21.6 % (12.0-16.0); RED CELL COUNT 3.38 10/6/uL (4.7-6.1); WHITE BLOOD CELLS 6.5 10/3/uL (4.5-10.5)
[2016-07-19 06:06] LABS: MANUAL DIFF YES %
[2016-07-19 06:11] LABS: ALBUMIN 2.1 G/DL (3.5-5.0); CALCIUM, SERUM 8.2 MG/DL (8.5-10.4); CHLORIDE, SERUM 85 MMOL/L (96-112); CO2 (CARBON DIOXIDE) 35 MMOL/L (24-34); CREATININE 2.92 MG/DL (0.70-1.30); GFR AFRICAN AMERICAN 26 ML/MIN (>=60); GFR NON AFRICAN AMERICAN 22 ML/MIN (>=60); GLUCOSE, SERUM 140 MG/DL (60-99); PHOSPHORUS, SERUM 3.9 MG/DL (2.5-4.5); POTASSIUM, SERUM 4.4 MMOL/L (3.5-5.3); SODIUM, SERUM 130 MMOL/L (135-148)
[2016-07-19 06:12] LABS: BUN (BLOOD UREA NITROGEN) 77 MG/DL (6-23)
[2016-07-19 06:35] LABS: BAND NEUTROPHILS 2 %; EOSINOPHILS 1 %; EOSINOPHILS ABSOLUTE (CALC) 0.07 10/3/uL (0.0-0.53); IMMATURE GRANS ABSOLUTE (CALC) 0.07 10/3/uL (0.0-0.11); LYMPHOCYTES 16 %; LYMPHOCYTES ABSOLUTE (CALC) 1.04 10/3/uL (0.67-4.30); METAMYELOCYTES 1 %; MONOCYTES 15 %; MONOCYTES ABSOLUTE (CALC) 0.98 10/3/uL (0.21-1.20); NEUTROPHILS ABSOLUTE (CALC) 4.36 10/3/uL (2.02-8.40); SEGMENTED NEUTROPHIL (0) 65 %; TOTAL NUCLEATED CELLS 100
[2016-07-19 06:36] LABS: RBC MORPHOLOGY ABN (NORMAL)
== END 2016-07-20 05:03 | disposition short-term general hospital (02) | DRG 698 ==
LOC: ER 15:57 → 5NO 19:21 → ER/OF 21:01 → 5NO 21:42
PROVIDERS: Emergency Medicine; Hospitalist; Internal Medicine; Internal Medicine Nephrology; Registered Nurse; Student in an Organized Health Care Education/Training Program
DX: N04.8 Nephrotic syndrome with other morphologic changes (principal); J81.0 Acute pulmonary edema; I63.9 Cerebral infarction, unspecified; N17.9 Acute kidney failure, unspecified; N18.3 Chronic kidney disease, stage 3 (moderate); I82.621 Acute embolism and thrombosis of deep veins of right upper extremity; N39.0 Urinary tract infection, site not specified; E87.1 Hypo-osmolality and hyponatremia; C67.9 Malignant neoplasm of bladder, unspecified; N50.89 Other specified disorders of the male genital organs; N48.83 Acquired buried penis; N13.30 Unspecified hydronephrosis; Z87.891 Personal history of nicotine dependence; R47.81 Slurred speech; R47.1 Dysarthria and anarthria
CPT/HCPCS: 36415; 36600; 70450; 70551; 71010; 71020; 74176; 76775; 76870; 80048; 80053; 80069; 80076; 81001; 82140; 82272; 82570; 82607; 82728; 82746; 82805; 83516; 83516-59; 83540; 83550; 83735; 83880; 84100; 84145; 84155; 84156; 84165; 84166; 84300; 84439; 84443; 84484; 84540; 85014; 85018; 85025; 85045; 85610; 85730; 86039; 86160; 86162; 86255; 86256; 86334; 86592; 86803; 86850; 86900; 86901; 86920; 87040; 87340; 93005; 93970; 93975; 94660; 94667; 96374; 97116-GP; 97161-GP; 97530-GP; 99285; A9270-GY; C8929; C9113; G0257; J1652; J2405; P9016; P9047; Q9957